=== PATIENT | male | born 1945 | race Caucasian/White ===

== ENCOUNTER 2020-10-05 22:28 | Inpatient (IN) | payer MEDICARE, BC ==
[~2020-10-05] VITALS: Ht 182.8 cm; Wt 105.8 kg
[~2020-10-05 22:28] MED LIST: ACTOS45 M1 PO; ASPIR LOW81 MG PO; CEPHALEXIN500 M1 PO; FLOMAX0.4 MG PO; K-TAB10 MEQ PO; LEVOXYL88 MCG PO; METOCLOPRAMIDE10 MG PO; PRAVASTATIN SOD40 MG PO; PRILOSEC20 M1 PO; TOPROL XL25 MG PO; TRAD5TAB1 PO; VICTOZA6 MG/ML SC
[2020-10-05 22:30] VITALS: BP 141/74
[2020-10-05 23:28] LABS: BILIRUBIN Negative (Negative); BLOOD 3+ (Negative); CLARITY Cloudy (Clear); COLOR Yellow (Yellow); GLUCOSE Negative (Negative); KETONE Negative (Negative); LEUKO ESTERASE Negative (Negative); NITRITE Negative (Negative); UROBILINOGEN 0.2 E.U./dl (0.0-1.0)
[2020-10-05 23:37] LABS: MEAN CELL VOLUME 86.4 fl (80.0-94.0); MEAN CORPUSCULAR HGB 27.4 pg (27.0-31.0); MEAN CORPUSCULAR HGB CONC 31.7 g/dl (33.0-37.0); PLATELET COUNT AUTOMATED 249 10*3/uL (130-400); RED BLOOD COUNT 4.05 10*6/uL (4.50-5.90); RED CELL DISTRI WIDTH 14.6 % (0-14.5); WHITE BLOOD COUNT 7.7 10*3/uL (4.8-10.8)
[2020-10-05 23:40] LABS: WBC 0-2 wbc/hpf (0-5)
[2020-10-05 23:46] LABS: INTERNATIONAL NORM RATIO 1.1 (2.0-3.5)
[2020-10-05 23:54] LABS: ALBUMIN 2.8 gm/dl (3.1-4.5); CREATININE 2.25 mg/dL (0.70-1.30); POTASSIUM 4.3 mmol/L (3.5-5.1)
[2020-10-05 23:58] LABS: TROPONIN I 0.05 ng/ml (<0.045)
[2020-10-06] VITALS (7 sets, daily range): BP systolic 121–150; BP diastolic 63–80
[2020-10-06] LABS: PLATELET SUFFICIENCY NORMAL (NORMAL); TOTAL CELLS COUNTED 100 #CELLS
[2020-10-06] MEDS ORDERED: AVPAK AZITHROM250 M1 PO (04:54)
[2020-10-06] MEDS ORDERED: SODIUM BICARBO650 MG PO (04:56)
[2020-10-06] MEDS ORDERED: JANUVIA100 MG PO (04:58)
[2020-10-06] MEDS ORDERED: LISINOPRIL10 M1 PO (05:11)
[2020-10-06] MEDS ORDERED: GLIMEPIRIDE2 MG PO (05:12)
[2020-10-06] MEDS ORDERED: VOLTAREN100 GM T (07:34)
[2020-10-06] MEDS ORDERED: SULFACETAMIDE S15 ML OPH (07:36)
[2020-10-07] VITALS: BP 170/86
[2020-10-07 01:18] VITALS: BP 162/82
[2020-10-07 06:12] LABS: MEAN CELL VOLUME 89.4 fl (80.0-94.0); MEAN CORPUSCULAR HGB 27.3 pg (27.0-31.0); MEAN CORPUSCULAR HGB CONC 30.5 g/dl (33.0-37.0); PLATELET COUNT AUTOMATED 222 10*3/uL (130-400); RED BLOOD COUNT 4.14 10*6/uL (4.50-5.90); RED CELL DISTRI WIDTH 14.9 % (0-14.5); WHITE BLOOD COUNT 10.9 10*3/uL (4.8-10.8)
[2020-10-07 06:45] LABS: ALBUMIN 2.7 gm/dl (3.1-4.5); POTASSIUM 4.8 mmol/L (3.5-5.1)
[2020-10-07 07:01] LABS: CREATININE 1.85 mg/dL (0.70-1.30); TOTAL PROTEIN 6.6 gm/dL (6.4-8.2)
[2020-10-07 07:56] LABS: TOTAL CELLS COUNTED 100 #CELLS
[2020-10-07 07:57] LABS: PLATELET SUFFICIENCY NORMAL (NORMAL)
[2020-10-07 08:00] VITALS: BP 128/50; BP 156/82
[2020-10-07 12:00] VITALS: BP 161/80
== END 2020-10-07 16:47 | disposition short-term general hospital (02) | DRG 178 ==
LOC: ED 22:28 → EDHOLD 10-06 04:28 → 4E 10-06 04:28
PROVIDERS: Emergency Medicine; ADMIT Internal Medicine; ATTEND Internal Medicine
DX: U07.1 COVID-19 (principal); N18.4 Chronic kidney disease, stage 4 (severe); N17.9 Acute kidney failure, unspecified; E03.9 Hypothyroidism, unspecified; E86.0 Dehydration; I12.9 Hypertensive chronic kidney disease with stage 1 through stage 4 chronic kidney disease, or unspecified chronic kidney disease; E11.22 Type 2 diabetes mellitus with diabetic chronic kidney disease; N40.0 Benign prostatic hyperplasia without lower urinary tract symptoms; Z79.899 Other long term (current) drug therapy; Z88.0 Allergy status to penicillin; Z87.891 Personal history of nicotine dependence